=== PATIENT | female | born 1990 | race Caucasian/White ===

== ENCOUNTER 2016-05-06 16:15 | Emergency (ER) | payer SELFPAY | END 2016-05-06 18:05 | disposition home or self-care (01) | LOC: FER 16:15 | DX: S61.211A Laceration without foreign body of left index finger without damage to nail, initial encounter (principal); W22.8XXA Striking against or struck by other objects, initial encounter; Y92.69 Other specified industrial and construction area as the place of occurrence of the external cause; Y99.0 Civilian activity done for income or pay ==

== ENCOUNTER 2020-09-30 08:26 | Emergency (ER) | payer OTHER ==
[2020-09-30 09:23] LABS: BASOPHIL 0.9 % (0-2); EOSINOPHIL 3.4 % (0-5); HGB 13.2 g/dl (12.5-16.0); LYMPHOCYTE 47.6 % (15-48); MCH 31.2 pg (25.0-31.0); MCHC 33.8 g/dL (32.0-36.0); MCV 92.2 fL (78.0-100.0); MONOCYTE 7.9 % (0-12); MPV 11.2 fL (6.0-9.5); NRBC 0; PLT 241 K/uL (150-400); RBC 4.23 M/uL (4.20-5.40); RDW 12.2 % (11.5-14.0); WBC 4.7 K/uL (4.0-10.5)
[2020-09-30 09:32] LABS: BILIRUBIN 1+ mg/dL (NEGATIVE); BLOOD NEGATIVE Ery/uL (NEGATIVE); GLUCOSE (U) TRACE mg/dL (NORMAL); LEUKOCYTES NEGATIVE Leu/uL (NEGATIVE); NITRITE POSITIVE (NEGATIVE); PROTEIN TRACE (LOW) mg/dL (NEGATIVE); SPECIFIC GRAVITY >=1.030 (1.001-1.030); pH 5.5 (5.0-9.0)
[2020-09-30 09:39] LABS: ALBUMIN 3.8 g/dL (3.4-5.0); BILIRUBIN - TOTAL 0.2 mg/dL (0.2-1.0); BUN/CREAT RATIO (CALC) 14.1 RATIO; CREATININE 0.64 mg/dL (0.51-0.95); GLOBULIN (CALCULATION) 3.3 g/dL; POTASSIUM 3.8 mmol/L (3.5-5.1); TOTAL PROTEIN 7.1 g/dL (6.4-8.2)
[2020-09-30 09:56] LABS: CLARITY HAZY (CLEAR); COLOR AMBER (YELLOW)
[2020-09-30 09:59] LABS: BACTERIA TRACE; URINARY WBC RARE
[2020-09-30] MEDS ORDERED: SENNA-S 8.6-501 EACH PO (11:22)
[2020-09-30] MEDS ORDERED: CIPRO500 MG PO (11:22)
== END 2020-09-30 12:20 | disposition home or self-care (01) ==
LOC: FER 08:26
PROVIDERS: Internal Medicine
DX: N39.0 Urinary tract infection, site not specified (principal); K59.00 Constipation, unspecified; F17.210 Nicotine dependence, cigarettes, uncomplicated; F90.9 Attention-deficit hyperactivity disorder, unspecified type; F41.9 Anxiety disorder, unspecified; F32.9 Major depressive disorder, single episode, unspecified; Z98.890 Other specified postprocedural states; Z88.5 Allergy status to narcotic agent; Z79.899 Other long term (current) drug therapy
CPT/HCPCS: 36415; 80053; 81001; 82150; 83690; 85025; J0696; J1885